=== PATIENT | male | born 1985 | race African-American/Black ===

== ENCOUNTER 2019-02-22 05:57 | Emergency (ER) | payer SELFPAY ==
[~2019-02-22] VITALS: Ht 193 cm; Wt 138.3 kg
[2019-02-22] MEDS ORDERED: NKM (06:06)
[2019-02-22 06:15] VITALS: BP 143/93
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
[2019-02-22] MEDS ORDERED: IBUPROFEN600 MG ORAL (06:50)
[2019-02-22] MEDS ORDERED: CEPHALEXIN500 MG ORAL (06:50)
[2019-02-22] MEDS ORDERED: Tylenol #3 tab (300mg/30mg) ORAL ONE (07:00)
[2019-02-22] MEDS ORDERED: Tetanus/Diptheria/Pertussis Vaccine 0.5ml Syr IM ONE (07:00)
[2019-02-22 07:14] VITALS: BP 140/88
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
== END 2019-02-22 07:23 | disposition home or self-care (01) ==
LOC: EMR 06:34
DX: S61.412A Laceration without foreign body of left hand, initial encounter (principal); S61.411A Laceration without foreign body of right hand, initial encounter; X99.1XXA Assault by knife, initial encounter; Y92.410 Unspecified street and highway as the place of occurrence of the external cause; Z23 Encounter for immunization
CPT/HCPCS: 90471; 90715; 99283

== ENCOUNTER 2019-03-31 21:49 | Emergency (ER) | payer SELFPAY ==
[~2019-03-31] VITALS: Ht 190.5 cm; Wt 122.5 kg
[~2019-03-31 21:49] MED LIST: CEPHALEXIN500 MG ORAL; IBUPROFEN600 MG ORAL; NKM
[2019-03-31 22:05] VITALS: BP 157/94
--- NOTE | 2019-03-31 22:05 | Emergency Room Report ---
History of Present Illness General Chief Complaint: Abdominal Pain Source: Patient Present Illness HPI Is a 34-year-old male with no past history. He presents with chief complaint of epigastric pain with nausea and vomiting. Onset for last 2 weeks. Worse when he eats. No fever chills but no diarrhea. No weight loss. Vomiting is nonbloody nonbilious. Pain is crampy in nature. Allergies: Coded Allergies: No Known Allergies (Unverified , 03/31/19) Patient History Past Medical History: none, see triage record, old chart reviewed Past Surgical History: none Pertinent Family History: none Social History: Denies: smoking Immunizations: other Reviewed Nursing Documentation: PMH: Agreed; PSxH: Agreed Nursing Documentation-PMH Hx Asthma: Yes Review of Systems Eye: Denies: eye pain, blurred vision ENT: Denies: ear pain, nose congestion, throat swelling Respiratory: Denies: cough, shortness of breath Cardiovascular: Denies: chest pain, palpitations Gastrointestinal: Reports: abdominal pain, nausea, vomiting; Denies: diarrhea Musculoskeletal: Denies: back pain, joint pain Skin: Denies: rash Neurological: Denies: headache, numbness Endocrine: Denies: increased thirst, increased urine Hematologic/Lymphatic: Denies: easy bruising All Other Systems: negative except mentioned in HPI Physical Exam Vital Signs Date Time Temp Pulse Resp B/P (MAP) Pulse Ox O2 Delivery O2 Flow Rate FiO2 03/31/19 21:54 98.6 76 18 97 Room Air vitals with high blood pressure Sp02 EP Interpretation: reviewed, normal General Appearance: well appearing, no apparent distress, alert Head: normocephalic, atraumatic Eyes: bilateral eye PERRL, bilateral eye EOMI ENT: hearing grossly normal, normal pharynx Neck: full range of motion, supple, no meningismus Respiratory: chest non-tender, lungs clear, normal breath sounds Cardiovascular #1: regular rate, rhythm, no murmur Gastrointestinal: normal bowel sounds, no mass, no organomegaly, no bruit, non- distended, tenderness - Mild epigastric Musculoskeletal: back normal, gait/station normal, normal range of motion Psychiatric: mood/affect normal Skin: warm/dry Medical Decision Making Diagnostic Impression: Primary Impression: Abdominal pain Qualified Codes: R10.13 - Epigastric pain ER Course Patient with epigastric abdominal pain. This is most likely peptic ulcer disease or GERD. No evidence of acute abdomen or obstruction. Labs unremarkable. We'll discharge home. Last Vital Signs Date Time Temp Pulse Resp B/P (MAP) Pulse Ox O2 Delivery O2 Flow Rate FiO2 03/31/19 21:54 98.6 76 18 97 Room Air Status: improved Disposition: HOME, SELF-CARE Condition: Stable Scripts Ondansetron (Zofran) 4 Mg Tablet 4 MG ORAL Q6H PRN for Nausea & Vomiting, #10 TAB 0 Refills Prov: Stan Matute MD 03/31/19 Omeprazole Magnesium (PRILOSEC OTC) 20 Mg Tablet. 20 MG ORAL DAILY, #30 TAB Prov: Stan Matute MD 03/31/19 Additional Instructions: Follow-up with your Dr. in 7 days. You may need a referral to see a automotive manufacturer. Return if worse. Stan Matute MD March 31, 2019 22:05
--- NOTE | 2019-03-31 22:05 | NUR ---
ER Nurse Note: Pt came from home c/o abd pain for a "few weeks" but pain got worse today; 8/10 sharp pain that does not radiate. Pt stated he has n/v/d for those few weeks. Per pt; pt vomited green-german emesis everyday for a few weeks. No trauma, no recent travels, no ingestion of anything abnormal recently. Will continue to [facility].
[2019-03-31] MEDS ORDERED: Mylanta II UD 30ml ORAL ONE (22:15)
[2019-03-31] MEDS ORDERED: Pantoprazole Inj IV ONE (22:15)
[2019-03-31 22:25] LABS: APPEARANCE,URINE CLEAR; BILIRUBIN, URINE NEGATIVE (NEGATIVE); GLUCOSE, URINE (UA) NEGATIVE (NEGATIVE); KETONES,URINE NEGATIVE (NEGATIVE); LEUKOCYTE ESTERASE ,URINE NEGATIVE (NEGATIVE); NITRITE,URINE NEGATIVE (NEGATIVE); PH,URINE 6 (4.5-8.0); PROTEIN,URINE NEGATIVE (NEGATIVE); UROBILINOGEN,URINE 1 MG/DL (0.0-1.0)
[2019-03-31 22:27] LABS: COLOR,URINE YELLOW
[2019-03-31 22:29] LABS: BASOPHILS % (AUTO) 1.6 % (0.0-2.0); EOSINOPHILS % (AUTO) 0.8 % (0.0-3.0); HEMATOCRIT 44.4 % (42.0-52.0); HEMOGLOBIN 14.2 G/DL (14.2-18.0); LYMPHOCYTES % (AUTO) 24.7 % (20.0-45.0); MEAN CORPUSCULAR VOLUME 81 FL (80-99); MONOCYTES % (AUTO) 6.8 % (1.0-10.0); NEUTROPHILS % (AUTO) 66.1 % (45.0-75.0); PLATELET COUNT 306 K/UL (150-450); RED BLOOD COUNT 5.48 M/UL (4.70-6.10); RED CELL DISTRIBUTION WIDTH 12.7 % (11.6-14.8); WHITE BLOOD COUNT 9.1 K/UL (4.8-10.8)
[2019-03-31 22:34] LABS: ANION GAP 8 mmol/L (5-15); BLOOD UREA NITROGEN 9 mg/dL (7-18); CALCIUM 9.2 MG/DL (8.5-10.1); CARBON DIOXIDE 29 MMOL/L (21-32); CHLORIDE 102 MMOL/L (98-107); CREATININE 1.3 MG/DL (0.55-1.30); POTASSIUM 3.5 MMOL/L (3.5-5.1); SODIUM 139 MMOL/L (136-145)
[2019-03-31 22:39] LABS: ALANINE AMINOTRANSFERASE 51 U/L (12-78); ALBUMIN 3.9 G/DL (3.4-5.0); ALBUMIN/GLOBULIN RATIO 0.9 (1.0-2.7); ALKALINE PHOSPHATASE 58 U/L (46-116); ASPARTATE AMINO TRANSFERASE 22 U/L (15-37); BILIRUBIN,TOTAL 0.3 MG/DL (0.2-1.0)
[2019-03-31] MEDS ORDERED: ZOFRAN4 MG ORAL (22:42)
[2019-03-31] MEDS ORDERED: PRILOSEC OTC20 MG ORAL (22:42)
[2019-03-31 23:00] VITALS: BP 125/65
--- NOTE | 2019-03-31 23:00 | NUR ---
ER Nurse Note: Pt seen, treated, medically cleared for discharge by ERMD. Discharge instructions given with repeat verbalization by pt. Instructed pt to follow up with primary care provider within one week. Pt a&ox4, VSS, no signs of distress. ID band removed. IV removed; site clean and bandaged. Pt left with all belongings with steady gait.
== END 2019-03-31 23:00 | disposition home or self-care (01) ==
LOC: EMR 22:22 → EDBD 22:22 → EMR 23:00
DX: R10.13 Epigastric pain (principal); R11.2 Nausea with vomiting, unspecified; J45.909 Unspecified asthma, uncomplicated
CPT/HCPCS: 36415; 80053; 81003; 83690; 85025; 96374; 96375; 99284; C9113; J2405

== ENCOUNTER 2020-04-30 13:39 | Emergency (ER) | payer SELFPAY ==
[~2020-04-30] VITALS: Ht 190.5 cm; Wt 132.9 kg
[~2020-04-30 13:39] MED LIST changes: +PRILOSEC OTC20 MG ORAL; +ZOFRAN4 MG ORAL
[2020-04-30 13:47] VITALS: BP 123/72
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
[2020-04-30] MEDS ORDERED: Tylenol #3 tab (300mg/30mg) ORAL ONE (14:00)
--- NOTE | 2020-04-30 14:02 | NUR ---
ED Nurse Note: Pt was taken to CT via wc, accompanied by a tech.
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
--- NOTE | 2020-04-30 14:10 | NUR ---
ED Nurse Note: Pt returned from CT, not in any distress.
--- NOTE | 2020-04-30 15:26 | Diagnostic Imaging Report ---
Indications: With periorbital pain and purulent discharge Technique: Spiral images obtained through the facial bones. No IV contrast utilized. Multiplanar reconstructions were generated.Total dose length product 416 mGycm. CTDIvol(s) 15 mGy. Dose reduction achieved using automated exposure control Comparison: none Findings: There is there is emphysema of the right periorbital subcutaneous fat as well as a slight degree of soft tissue swelling. Emphysema also extends slightly into the retroseptal orbit along the superior and medial aspects. No definite fracture is demonstrated. The optic globe appears intact. There is very slight flattening of the tip of the nasal bone. Uncertain as whether this represents old trauma or is developmental. There is medial displacement of the medial wall of the left orbit with some slight herniation of the orbital fat into the defect. The intracranial structures are unremarkable. The nasal septum is minimally deviated to the right. There is minimal left maxillary sinus mucosal disease. The dentition is intact. Impression: No definite acute orbital fracture demonstrated. Periorbital emphysema. This could represent leakage from the sinus due to occult fracture but could also indicate infection by gas-forming organism. Given stated clinical history of swelling after blowing his nose this could also represent forcible injection of gas from a sinus in the soft tissues. Correlate with clinical findings Slight deformity of the tip of the nasal bone, probably developmental but could indicate old trauma Inward displacement of the left medial orbital wall, probably developmental but could be sequela of old trauma Minimal sinus disease Findings discussed by phone with Haley, nurse practitioner, in the emergency room at the time of interpretation The CT scanner at [facility] is accredited by the [employer] and the scans are performed using protocols designed to limit radiation exposure to as low as reasonably achievable to attain images of sufficient resolution adequate for diagnostic evaluation.
[2020-04-30] MEDS ORDERED: OCUFLOX5 ML OP (15:30)
[2020-04-30] MEDS ORDERED: IBUPROFEN400 MG ORAL (15:30)
[2020-04-30 15:36] VITALS: BP 132/69
--- NOTE | 2020-04-30 15:36 | NUR ---
ED Nurse Note: Pt cleared by ERMD for discharge. DC instructions/prescription was given and explained to pt and verbalized understanding of teachings. All medical deviecs such as ID band removed. Pt is AAO x4, ambulatory and left with all personal belongings.
== END 2020-04-30 15:40 | disposition home or self-care (01) ==
LOC: EMR 13:57
DX: H02.843 Edema of right eye, unspecified eyelid (principal); S00.83XA Contusion of other part of head, initial encounter; H10.31 Unspecified acute conjunctivitis, right eye; R05 Cough; X58.XXXA Exposure to other specified factors, initial encounter
CPT/HCPCS: 70486; 99284